=== PATIENT | female | born 1955 ===

== ENCOUNTER 2023-04-20 11:00 | Inpatient (IN) | payer OTHER ==
[~2023-04-20] VITALS: Ht 157.5 cm; Wt 83.5 kg
[2023-04-20] MEDS ORDERED: GLIMEPIRIDE4 M1 PO (11:56)
[2023-04-20] MEDS ORDERED: CARVEDILOL12.5 M1 PO (11:56)
[2023-04-20] MEDS ORDERED: AMLODIPINE BESY10 MG PO (11:57)
[2023-04-20] MEDS ORDERED: ATORVASTATIN CA10 MG PO (11:57)
[2023-04-20] MEDS ORDERED: GRALISE600 MG PO (11:57)
[2023-04-30 06:50] LABS: HEMATOCRIT 31.6 % (36.0-45.00); HEMOGLOBIN 10.3 g/dL (12.0-15.00); MEAN CELL VOLUME 82.7 fL (80.00-100.00); MEAN CORPUSCULAR HGB CONC 32.6 g/dl (32.0-36.0); PLATELET COUNT 262 K/uL (150-450); RED BLOOD COUNT 3.83 M/uL (4.00-6.00); RED CELL DISTRIBUTION WIDTH 14.6 % (11.5-14.5)
[2023-04-30 07:34] LABS: ALBUMIN 2.2 gm/dL (3.4-5.0); CALCIUM 7.8 mg/dL (8.5-10.1); CREATININE SERUM 1.21 mg/dL (0.55-1.02); GFR 44.52; PHOSPHOROUS 2.7 mg/dL (2.5-4.9); POTASSIUM 3.94 mEq/L (3.5-5.1)
[2023-05-01] MEDS ORDERED: PERCOCET 5-3251 EACH PO (14:17)
== END 2023-05-01 15:46 | disposition home or self-care (01) | DRG 331 ==
LOC: O/R 04-29 04:30 → SURG 04-29 07:00 → SURH 04-29 10:01 → SURG 04-29 11:45 → SURH 05-01 15:46
PROVIDERS: ADMIT Surgery; ATTEND Surgery
PROC: 07BB4ZZ Excision of Mesenteric Lymphatic, Percutaneous Endoscopic Approach (ICD-10-PCS; 2023-04-29)
PROC: 0DNW4ZZ Release Peritoneum, Percutaneous Endoscopic Approach (ICD-10-PCS; 2023-04-29)
PROC: 0DTF4ZZ Resection of Right Large Intestine, Percutaneous Endoscopic Approach (ICD-10-PCS; principal; 2023-04-29 07:00)
DX: D12.0 Benign neoplasm of cecum (principal); K63.5 Polyp of colon; N73.6 Female pelvic peritoneal adhesions (postinfective); N99.4 Postprocedural pelvic peritoneal adhesions; R59.0 Localized enlarged lymph nodes; E11.22 Type 2 diabetes mellitus with diabetic chronic kidney disease; N18.9 Chronic kidney disease, unspecified